=== PATIENT | female | born 1970 | race Two or more races ===

== ENCOUNTER 2020-01-09 03:00 | Emergency (ER) | payer SELFPAY ==
[~2020-01-09] VITALS: Ht 154.9 cm; Wt 64.5 kg
[2020-01-09] MEDS ORDERED: ONDANSETRON 2MG/ML, 2ML IVPush ONE ×2 (04:00→05:30)
[2020-01-09] MEDS ORDERED: MORPHINE SULFATE 4 MG/ML, 1ML IVPush ONE ×2 (04:00→05:30)
[2020-01-09] MEDS ORDERED: ONDANSETRON 2MG/ML, 2ML ONE ×2 (04:06→05:34)
[2020-01-09] MEDS ORDERED: MORPHINE SULFATE 4 MG/ML, 1ML ONE ×3 (04:06→07:07)
--- NOTE | 2020-01-09 04:18 | NUR ---
Patient presents to ER c/o low quad abd pain with nausea x3 days. Patient denies V/D. No hx of the same. Patient is in NAD. Respirations even and unlabored.
[2020-01-09 04:52] LABS: ANION GAP 3 mmol/L (5-15); CHLORIDE 113 mmol/L (98-107); CREATININE 0.58 mg/dL (0.55-1.02)
[2020-01-09 04:54] LABS: HCG UR SG 1.029 (1.003-1.030); MICROSCOPIC NOT IND
[2020-01-09 05:05] LABS: BASOPHILS # (AUTO) 0.05 x10^3/uL (0-0.1); BASOPHILS % (AUTO) 1 % (0-1); EOSINOPHILS % (AUTO) 3 % (1-7); LYMPHOCYTES # (AUTO) 1.96 x10^3/uL (1-3.4); LYMPHOCYTES % (AUTO) 31 % (22-44); MD SCAN; MEAN CORPUSCULAR HGB CONC 32.1 g/dL (32.4-35.8); MEAN CORPUSCULAR VOLUME 96.5 fL (80-100); MEAN PLATELET VOLUME 12.2 fL (7.4-10.4); MONOCYTES # (AUTO) 0.39 x10^3/uL (0.2-0.8); MONOCYTES % (AUTO) 6 % (2-9); NEUTROPHILS # (AUTO) 3.78 x10^3/uL (1.8-6.8); NEUTROPHILS % (AUTO) 59 % (42-75); PLATELET COUNT 141 x10^3/uL (130-400); RED BLOOD COUNT 3.71 x10^6/uL (3.82-5.3); RED CELL DISTRIBUTION WIDTH 14.2 % (9.6-15.2)
[2020-01-09] MEDS ORDERED: OMNIPAQUE 350 MG/ML, 100ML BOTTLE ONE (05:38)
--- NOTE | 2020-01-09 06:50 | NUR ---
Report to PAUL Mays. Patient care transferred.
[2020-01-09] MEDS ORDERED: ACETAMINOPHEN 500 MG TABLET ONE (07:14)
--- NOTE | 2020-01-09 07:18 | NUR ---
PT RESTING ON GURNEY AT THIS TIME, PELVIC EXAM COMPLETED BY ROHAN. PT CONTINUE TO REPORT PAIN, ORDERS FOR MSO4 ORDERED. PT WITH BP 82/51 ERMD UPDATED, PT NOT SYMPTOMATIC TO THIS AT THIS TIME, ABLE TO AMBULATED TO BR NO DIZZINESS OR CP REPORTED. HOLD NARC A THIS TIME, BOLUS ORDERED, WILL MEDICATE PER MAR
[2020-01-09] MEDS ORDERED: ACETAMINOPHEN 500 MG TABLET PO ONE (07:30)
[2020-01-09] MEDS ORDERED: SODIUM CHLORIDE 0.9% 1,000ML IVBOLUS ONE (07:30)
[2020-01-09] MEDS ORDERED: MORPHINE SULFATE 4 MG/ML, 1ML IVPush PRN (07:30)
[2020-01-09 07:54] LABS: CLUE CELLS NONE SEEN (NONE SEEN); WET PREP WBCS FEW (FEW)
[2020-01-09 08:49] VITALS: BP 101/72
== END 2020-01-09 08:51 | disposition home or self-care (01) ==
LOC: ED 05:05
DX: D25.9 Leiomyoma of uterus, unspecified (principal); R10.2 Pelvic and perineal pain; R11.0 Nausea; R30.0 Dysuria; R10.84 Generalized abdominal pain
CPT/HCPCS: 36415; 74177; 76830; 80048; 81003; 81025; 85025; 87210; 87491; 87591; 87808; 96361; 96374; 96375; 96376; 99285; J2270; J2405; J7030; Q9967

== ENCOUNTER 2020-04-15 02:48 | Emergency (ER) | payer OTHER ==
[~2020-04-15] VITALS: Ht 157.5 cm; Wt 60.0 kg
[2020-04-15] MEDS ORDERED: ONDANSETRON ODT 4 MG ONE (03:01)
--- NOTE | 2020-04-15 03:04 | NUR ---
pt bib remsa to room 33. unresponsive to verbal. responsive to painful stimuli. awoke to answer questions, then back to sleep. on cr monitor, abc intact. on o2 nc 2lpm, and co2 detector. IV to left ac intact and flushed well. notified.
--- NOTE | 2020-04-15 03:05 | NUR ---
pt awoke suddenly and had large emisis. answering questions now.
--- NOTE | 2020-04-15 03:21 | NUR ---
pt awakens, sitting up. cxry done, 1liter NS hung to run over 1 hour. lab drawn. fingerstick glucose was 75 mg/dl.
[2020-04-15] MEDS ORDERED: ONDANSETRON 2MG/ML, 2ML IVPush ONE (03:30)
[2020-04-15] MEDS ORDERED: SODIUM CHLORIDE FLUSH 10ML SYR IVF ONE (03:30)
[2020-04-15] MEDS ORDERED: SODIUM CHLORIDE 0.9% 1,000ML IVBOLUS ONE (03:30)
[2020-04-15 03:40] LABS: ALANINE AMINOTRANSFERASE 26 U/L (12-78); ALBUMIN 3.5 g/dL (3.4-5.0); ANION GAP 4 mmol/L (5-15); CALCIUM 8.3 mg/dL (8.5-10.1); CHLORIDE 111 mmol/L (98-107); CREATININE 0.69 mg/dL (0.55-1.02)
[2020-04-15 03:42] LABS: BASOPHILS % (AUTO) 1 % (0-1); EOSINOPHILS % (AUTO) 1 % (1-7); LYMPHOCYTES % (AUTO) 33 % (22-44); MEAN CORPUSCULAR HGB CONC 33.5 g/dL (32.4-35.8); MEAN PLATELET VOLUME 11.1 fL (7.4-10.4); MONOCYTES % (AUTO) 8 % (2-9); NEUTROPHILS % (AUTO) 58 % (42-75); PLATELET COUNT 199 x10^3/uL (130-400); RED BLOOD COUNT 4.23 x10^6/uL (3.82-5.3); RED CELL DISTRIBUTION WIDTH 13.4 % (9.6-15.2)
[2020-04-15 03:44] LABS: MD NO
[2020-04-15 03:45] LABS: ALKALINE PHOSPHATASE 81 U/L (45-117); BILIRUBIN,TOTAL 0.3 mg/dL (0.2-1.0); TOTAL PROTEIN 7.9 g/dL (6.4-8.2); TROPONIN I < 0.015 ng/mL (0.000-0.045)
--- NOTE | 2020-04-15 03:59 | NUR ---
pt to ct with tech. awake and alert.
[2020-04-15] MEDS ORDERED: OMNIPAQUE 350 MG/ML, 100ML BOTTLE ONE (04:16)
--- NOTE | 2020-04-15 04:18 | NUR ---
pt awake and alert. up to commode. ambulating without problem.
--- NOTE | 2020-04-15 04:27 | NUR ---
pts significant other arrived and is at bedside. security spoke with him in regards to keep things calm and no altercations in room.
[2020-04-15 04:54] VITALS: BP 118/74
--- NOTE | 2020-04-15 05:32 | NUR ---
iv d/cd, catheter intact. pt given dc instructions and verbalized understanding. ambulatory, and awake and alert, accompanied by significant other.
== END 2020-04-15 05:34 | disposition home or self-care (01) ==
LOC: ED 04:27
DX: R10.84 Generalized abdominal pain (principal); R11.2 Nausea with vomiting, unspecified; F10.129 Alcohol abuse with intoxication, unspecified; R41.82 Altered mental status, unspecified; Y90.9 Presence of alcohol in blood, level not specified
CPT/HCPCS: 36415; 70450; 71045; 74177; 80053; 80320; 82962; 84484; 84703; 85025; 93005; 96361; 96374; 99285; J2405; J7030; Q9967; G0480

== ENCOUNTER 2020-12-31 07:33 | Emergency (ER) | payer SELFPAY ==
[~2020-12-31] VITALS: Ht 160 cm; Wt 67.0 kg
[2020-12-31 07:45] VITALS: BP 100/59
[2020-12-31] MEDS ORDERED: KETOROLAC 30 MG/1 ML IM ONE (08:30)
[2020-12-31] MEDS ORDERED: KETOROLAC 60 MG/2 ML ONE (08:35)
--- NOTE | 2020-12-31 08:41 | NUR ---
MEDICATED PER ORDERS FOR LEFT SHOULDER PAIN
--- NOTE | 2020-12-31 09:00 | NUR ---
PT STATES PAIN IS BETTER AFTER MEDICATIONS
--- NOTE | 2020-12-31 09:25 | NUR ---
Patient/Caregiver given discharge instructions and they have confirmed that they understand the instructions. Patient ambulatory with steady gait. NAD, all questions answered appropriately, denies additional needs at this time. No personal belongings left in room after discharge.
== END 2020-12-31 09:27 | disposition home or self-care (01) ==
LOC: ED 09:20
DX: G89.11 Acute pain due to trauma (principal); M25.512 Pain in left shoulder; W18.30XA Fall on same level, unspecified, initial encounter; Y93.89 Activity, other specified; Y92.009 Unspecified place in unspecified non-institutional (private) residence as the place of occurrence of the external cause; Y99.8 Other external cause status
CPT/HCPCS: 73030; 96372; 99283; J1885